=== PATIENT | female | born 1990 | race Caucasian/White ===

== ENCOUNTER 2024-11-16 09:03 | Emergency (ER) | payer SELFPAY ==
[~2024-11-16] VITALS: Ht 152.4 cm; Wt 78.0 kg
[2024-11-16] MEDS ORDERED: PROTONIX40 MG PO (09:13)
[2024-11-16] MEDS ORDERED: Acetaminophen/Oxycodone 5 MG/325 MG TABLET PO ONE (09:30)
[2024-11-16] MEDS ORDERED: MELOXICAM15 MG PO (10:01)
== END 2024-11-16 10:18 | disposition home or self-care (01) ==
LOC: ED 09:03
DX: S93.601A Unspecified sprain of right foot, initial encounter (principal); G62.9 Polyneuropathy, unspecified; Z90.711 Acquired absence of uterus with remaining cervical stump; Z88.0 Allergy status to penicillin; Z88.6 Allergy status to analgesic agent; Z79.899 Other long term (current) drug therapy; W10.9XXA Fall (on) (from) unspecified stairs and steps, initial encounter; Y93.89 Activity, other specified; Y92.89 Other specified places as the place of occurrence of the external cause; Y99.8 Other external cause status